=== PATIENT | female | born 1950 ===

== ENCOUNTER 2018-08-20 10:22 | Emergency (ER) | payer OTHER ==
--- OUTSIDE RECORDS SUMMARY | 2018-08-20 10:24 | XMS REPORT | Clinical Summary ---
:1950 Author Organization [facility] Address [address] [place] [address] Care Team Providers Name Role Phone Elliott Amezcua MD Primary Care Provider Allergies No Known Allergies Medications Medication Sig Dispensed Refills Start Date End Date Status losartan (COZAAR) 50 MG Take 50 mg by 0 Active tablet mouth daily. pravastatin (PRAVACHOL) Take 40 mg by 0 Active 40 MG tablet mouth daily. 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 Last Filed Vital Signs Not on file Plan of Treatment Not on file Implants Implanted Type [facility] Medicine Director Device Shelf Model / Identifier Expiration Serial / Date Lot Scr Can Ti 6.7x70mm [id number] - [id number] [place]/A Left: ARTHREX AR- [id number] / Implanted: Qty: 1 on 08/12/2015 by Bruno Flannery MD rthrosco Foot / py Scr Can Ti 6.7x50mm [id number] - [id number] [place]/A Left: ARTHREX AR- [id number] / Implanted: Qty: 1 on 08/12/2015 by Bruno Flannery MD rthrosco Foot / py Scr Lp Paulie Pt 4.5x40 Ti [id number] - [id number] [place]/A Left: ARTHREX [id number] / Implanted: Qty: 1 on 08/12/2015 by Bruno Flannery MD rthroscprincess Foot / py Tiss Live Dbx Putty 5cc [id number] - [id number] Bone Left: MUSCULOSKELETAL 09/2017 [id number] / Implanted: Qty: 1 on 08/12/2015 by Bruno Flannery MD Foot TRANSPLANT FND / Grft Bone Augment 3cc [id number] - [id number] Bone Left: [employer] [id number] / Implanted: Qty: 2 on 08/12/2015 by Bruno Flannery MD Foot GRP: [employer]IN MED / TECH Bone Grft Ignite Pwr 4cc [id number] - [id number] Cement/F Left: WE[employer]IN MED 10/18/2019 [id number] / Implanted: Qty: 2 on 08/12/2015 by Bruno Flannery MD iller/Ad Foot GRP:WEINST[employer]IN MED / hesive TECH [id number] Plt X 3.0mm Med Ti Ar-8952xm - [id number] Fracture Left: ARTHREX AR- [id number] / Implanted: Qty: 2 on 08/12/2015 by Bruno Flannery MD /Fixatio Foot / n Scr Retrofusion 20mm Ar-4157-20 - [id number] Fracture Left: ARTHREX 2019 AR-[id number] / Implanted: Qty: 1 on 08/12/2015 by Bruno Flannery MD /Fixatio Toe / n [id number] Scr Jerry Nicolette 3.0x22mm Ar-8933l-22 - [id number] Fracture Left: ARTHREX AR -[id number]-22 / Implanted: Qty: 1 on 08/12/2015 by Bruno Flannery MD /Fixatio Foot / n Scr Lp Nicolette 3x28mm Ti Ar-8933l-28 - [id number] Fracture Left: ARTHREX AR- [id number]-28 / Implanted: Qty: 2 on 08/12/2015 by Bruno Flannery MD /Fixatio Foot / n Scr Lp Nicolette 3x30mm Ti Ar-8933l-30 - [id number] Fracture Left: ARTHREX AR- [id number]-30 / Implanted: Qty: 1 on 08/12/2015 by Bruno Flannery MD /Fixatio Foot / n Scr Lp Paulie Full Thread 3x28mm Ar-8933-28 - [id number] Fracture Left: ARTHREX AR-8933-28 / Implanted: Qty: 1 on 08/12/2015 by Bruno Flannery MD /Fixatio Foot / n Scr Jerry Lp 3.0x26mm Ar-8933-26 - [id number] Fracture Left: ARTHREX AR- 8933-26 / Implanted: Qty: 1 on 08/12/2015 by Bruno Flannery MD /Fixatio Foot / n Screw 20mm ARTHREX AR-[id number] / Implanted: Qty: 1 on 08/12/2015 by Bruno Flannery MD / Speed Arc Left: BIOMEDICAL 02/11/2019 [id number] / Implanted: Qty: 1 on 08/12/2015 by Bruno Flannery MD Foot ENTERPRISES / [id number] Results Not on fileafter 08/19/2017 Insurance Payer Benefit Plan / Group Subscriber ID Type Phone Address MEDICARE MEDICARE A B xxxxxxxxxx Medicare MCR SUPPLEMENT/INDIVIDUAL MUTUAL OF [employer]USSY xxxxxxxx [facility] Advance Directives For more information, please contact:[address] [phone] Code Status Date Activated Date Inactivated Comments Full Code 08/12/2015 6:50 AM 08/13/2015 4:13 PM This code status was determined by: Patient
--- NOTE | 2018-08-20 11:05 | EDPHYS ---
Physician Documentation [facility] Name: Sho Ortiz Age: 68 yrs Sex: Female : 1950 Arrival Date: 08/20/2018 Time: 10:27 Bed 19 Private MD: Elliott Amezcua T ED Physician Vasiliy Jason HPI: 08/20 11:01 This 68 yrs old Unknown Female presents to ER via Wheelchair with complaints of Finger kayleigh Injury. 11:01 Trauma demographics: County: The injury occurred in [place]. Mechanism of injury: cut. kayleigh Associated injuries: The patient sustained dorsal aspect of middle phalanx of left middle finger. Onset: The symptoms/episode began/occurred just prior to arrival. The patient has not experienced similar symptoms in the past. Historical: - Allergies: 10:42 No Known Allergies; ph - PMHx: 10:42 Hyperlipidemia; Hypertension; CVA (hemorrhagic); ph - PSHx: 10:42 Left foot; ph - Immunization history:: Adult Immunizations unknown. - Social history:: Smoking status: Patient/guardian denies using tobacco. - Ebola Screening: : No symptoms or risks identified at this time. ROS: 11:02 Constitutional: Negative for fever, chills, and weight loss, Eyes: Negative for injury, kayleigh pain, redness, and discharge, ENT: Negative for injury, pain, and discharge, Neck: Negative for injury, pain, and swelling, Cardiovascular: Negative for chest pain, palpitations, and edema, Respiratory: Negative for shortness of breath, cough, wheezing, and pleuritic chest pain, Abdomen/GI: Negative for abdominal pain, nausea, vomiting, diarrhea, and constipation, Back: Negative for injury and pain, : Negative for injury, bleeding, discharge, and swelling, Skin: Negative for injury, rash, and discoloration, Neuro: Negative for headache, weakness, numbness, tingling, and seizure, Psych: Negative for depression, anxiety, suicide ideation, homicidal ideation, and hallucinations, Allergy/Immunology: Negative for hives, rash, and allergies, Endocrine: Negative for neck swelling, polydipsia, polyuria, polyphagia, and marked weight changes, Hematologic/Lymphatic: Negative for swollen nodes, abnormal bleeding, and unusual bruising. 11:02 MS/extremity: Positive for injury or acute deformity, pain, of the dorsal aspect of middle phalanx of left middle finger. Exam: 11:02 Constitutional: This is a well developed, well nourished patient who is awake, alert, kayleigh and in no acute distress. Head/Face: Normocephalic, atraumatic. Eyes: Pupils equal round and reactive to light, extra-ocular motions intact. Lids and lashes normal. Conjunctiva and sclera are non-icteric and not injected. Cornea within normal limits. Periorbital areas with no swelling, redness, or edema. ENT: Nares patent. No nasal discharge, no septal abnormalities noted. Tympanic membranes are normal and external auditory canals are clear. Oropharynx with no redness, swelling, or masses, exudates, or evidence of obstruction, uvula midline. Mucous membranes moist. Neck: Trachea midline, no thyromegaly or masses palpated, and no cervical lymphadenopathy. Supple, full range of motion without nuchal rigidity, or vertebral point tenderness. No Meningismus. Chest/axilla: Normal chest wall appearance and motion. Nontender with no deformity. No lesions are appreciated. Cardiovascular: Regular rate and rhythm with a normal S1 and S2. No gallops, murmurs, or rubs. Normal PMI, no JVD. No pulse deficits. Respiratory: Lungs have equal breath sounds bilaterally, clear to auscultation and percussion. No rales, rhonchi or wheezes noted. No increased work of breathing, no retractions or nasal flaring. Abdomen/GI: Soft, non-tender, with normal bowel sounds. No distension or tympany. No guarding or rebound. No evidence of tenderness throughout. Back: No spinal tenderness. No costovertebral tenderness. Full range of motion. Skin: Warm, dry with normal turgor. Normal color with no rashes, no lesions, and no evidence of cellulitis. Neuro: Awake and alert, GCS 15, oriented to person, place, time, and situation. Cranial nerves II-XII grossly intact. Motor strength 5/5 in all extremities. Sensory grossly intact. Cerebellar exam normal. Normal gait. Psych: Awake, alert, with orientation to person, place and time. Behavior, mood, and affect are within normal limits. 11:02 Musculoskeletal/extremity: ROM: full active range of motion, full passive range of motion, Circulation is intact in all extremities. Sensation intact. Compartment Syndrome exam of affected extremity: is normal. DVT Exam: no swelling, negative Homans' sign noted on exam, no appreciated bluish discoloration, no erythema, no increased warmth, pain, tenderness. Vital Signs: 10:40 BP 146 / 76; Pulse 73; Resp 18; Temp 97.8; Pulse Ox 97% on R/A; Weight 58.97 kg; Height ph 5 ft. 5 in. (165.10 cm); Pain 1/10; 10:40 Body Mass Index 21.63 (58.97 kg, 165.10 cm) ph MDM: 10:33 Patient medically screened. [facility] 11:03 Data reviewed: vital signs, nurses notes. [facility] 08/20 11:01 Order name: Prolene, Sutures; Complete Time: 11:11 [facility] 08/20 11:01 Order name: Dressing - Wound; Complete Time: 11:11 [facility] 08/20 11:01 Order name: Gloves, Sterile; Complete Time: 11:11 [facility] 08/20 11:01 Order name: Setup Suture Tray; Complete Time: 11:12 [facility] 08/20 11:01 Order name: Wound dressing; Complete Time: 11:56 [facility] Administered Medications: 11:20 Drug: Lidocaine (1 %) 5 ml Volume: 5 ml; Route: Infiltration; ph 11:57 Follow up: Response: No adverse reaction ph 11:34 Drug: Tetanus-Diphtheria Toxoid Adult 0.5 ml {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 Exp: ph 06/09/2020. Lot #: [id number]. } Route: IM; Site: right deltoid; 11:57 Follow up: Response: No adverse reaction ph Disposition: 08/20/18 11:04 Discharged to Home. Impression: Laceration without foreign body of finger without damage to nail - left middle. - Condition is Fair. - Discharge Instructions: Laceration Care, Adult, Laceration Care, Adult, [id number]. - Prescriptions for Keflex 500 mg Oral Capsule - take 1 capsule by ORAL route every 8 hours for 7 days; 21 capsule. Tylenol- Codeine #3 300-30 mg Oral Tablet - take 2 tablets by ORAL route every 6 hours As needed; 20 tablet. - Medication Reconciliation Form, Thank You Letter, Antibiotic Education, Prescription Opioid Use form. - Follow up: Elliott Amezcua MD; When: 7 - 10 days; Reason: Recheck today's complaints, Continuance of care, Re-evaluation by your physician. - Problem is new. - Symptoms have improved. Signatures: Vasiliy Jason MD MD cha Hall, Patricia RN RN Jeronimo Lemons RN RN ae4 Corrections: (The following items were deleted from the chart) 12:01 11:04 08/20/2018 11:04 Discharged to Home. Impression: Laceration without foreign body ae4 of finger without damage to nail - left middle. Condition is Fair. Forms are Medication Reconciliation Form, Thank You Letter, Antibiotic Education, Prescription Opioid Use. Follow up: Elliott Amezcua; When: 7 - 10 days; Reason: Recheck today's complaints, Continuance of care, Re-evaluation by your physician. Problem is new. Symptoms have improved. kayleigh
--- NOTE | 2018-08-20 11:05 | ER ---
Nurse's Notes [facility] Name: Sho Ortiz Age: 68 yrs Sex: Female : 1950 Arrival Date: 08/20/2018 Time: 10:27 Bed 19 Private MD: Elliott Amezcua T Diagnosis: Laceration without foreign body of finger without damage to nail-left middle Presentation: 08/20 10:39 Presenting complaint: Patient states: Laceration to L middle finger, states, " I was ph cutting cabbage w/ a new knife." Small laceration noted to pad of L middle finger, bleeding controlled. Transition of care: patient was not received from another setting of care. Onset of symptoms was August 20, 2018. Risk Assessment: Do you want to hurt yourself or someone else? Patient reports no desire to harm self or others. Initial Sepsis Screen: Does the patient meet any 2 criteria? No. Patient's initial sepsis screen is negative. Does the patient have a suspected source of infection? No. Patient's initial sepsis screen is negative. Care prior to arrival: None. 10:39 Method Of Arrival: Wheelchair ph 10:39 Acuity: BENJAMIN 4 ph Historical: - Allergies: 10:42 No Known Allergies; ph - PMHx: 10:42 Hyperlipidemia; Hypertension; CVA (hemorrhagic); ph - PSHx: 10:42 Left foot; ph - Immunization history:: Adult Immunizations unknown. - Social history:: Smoking status: Patient/guardian denies using tobacco. - Ebola Screening: : No symptoms or risks identified at this time. Screenin:43 Abuse screen: Denies threats or abuse. Denies injuries from another. Nutritional ph screening: No deficits noted. Tuberculosis screening: No symptoms or risk factors identified. Fall Risk None identified. Assessment: 10:43 General: Appears in no apparent distress. comfortable, slender, Behavior is calm, ph cooperative, appropriate for age. Pain: Complains of pain in palmar aspect of distal phalanx of left middle finger and palmar aspect of middle phalanx of left middle finger. Neuro: Level of Consciousness is awake, alert, obeys commands, Oriented to person, place, time, situation. Cardiovascular: Capillary refill < 3 seconds in bilateral fingers Patient's skin is warm and dry. Respiratory: Respiratory effort is even, unlabored. Derm: Skin is healthy with good turgor, Skin is pink, warm \\T\\ dry. Musculoskeletal: Circulation, motion, and sensation intact. Range of motion: intact in all extremities, Swelling absent. Injury Description: Laceration sustained to palmar aspect of distal phalanx of left middle finger and palmar aspect of middle phalanx of left middle finger is clean, superficial, 0.5 to 2.5 cm long, not bleeding, was sustained 30-60 minutes ago. Vital Signs: 10:40 BP 146 / 76; Pulse 73; Resp 18; Temp 97.8; Pulse Ox 97% on R/A; Weight 58.97 kg; Height ph 5 ft. 5 in. (165.10 cm); Pain 03/29; 10:40 Body Mass Index 21.63 (58.97 kg, 165.10 cm) ph ED Course: 10:27 Patient arrived in ED. mr 10:27 Elliott Amezcua MD is Private Physician. mr 10:33 Vasiliy Jason MD is Attending Physician. kayleigh 10:38 Jasmyne Daniel RN is Primary Nurse. ph 10:40 Triage completed. ph 10:42 Arm band placed on Patient placed in an exam room, on a stretcher. ph 10:43 Patient has correct armband on for positive identification. Bed in low position. Call ph light in reach. Side rails up X 1. Pulse ox on. NIBP on. Door closed. Noise minimized. 11:03 Elliott Amezcua MD is Referral Physician. kayleigh 11:30 Assist provider with laceration repair on palmar aspect of middle phalanx of left ph middle finger that was 2.5 cm. or less using sutures. Set up tray. Performed by Vasiliy Jason MD Dressed with band aid, Patient tolerated well. 11:37 Patient did not have IV access during this emergency room visit. 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 Exp: ph 06/09/2020. Lot #: [id number]. } Route: IM; Site: right deltoid; 11:57 Follow up: Response: No adverse reaction ph Outcome: 11:04 Discharge ordered by . kayleigh 12:00 Discharged to home ambulatory, With cane. ae4 12:00 Condition: stable 12:00 Discharge instructions given to patient, significant other, Instructed on discharge instructions, follow up and referral plans. medication usage, Demonstrated understanding of instructions, Prescriptions given X 2. 12:01 Patient left the ED. ae4 Signatures: Vasiliy Jason MD MD cha Rivera, Mary mr Hall, Patricia, RN RN Jeronimo Lemons RN RN ae4
[2018-08-20] MEDS ORDERED: TETANUS & DIPHTHERIA TOX,ADULT 0.5 ML VIAL ONE (11:09)
[2018-08-20] MEDS ORDERED: LIDOCAINE 1% MPF 5 ML VIAL ONE (11:09)
== END 2018-08-20 12:01 | disposition home or self-care (01) ==
LOC: ER 10:22
PROC: 0JQK0ZZ Repair Left Hand Subcutaneous Tissue and Fascia, Open Approach (ICD-10-PCS; principal; 2018-08-20)
DX: S61.213A Laceration without foreign body of left middle finger without damage to nail, initial encounter (principal); W45.8XXA Other foreign body or object entering through skin, initial encounter; Y93.9 Activity, unspecified; Y92.89 Other specified places as the place of occurrence of the external cause; Z23 Encounter for immunization; I10 Essential (primary) hypertension
CPT/HCPCS: 90471; 90714; 99284

== ENCOUNTER → 2023-05-15 | Emergency (ER) | payer OTHER ==
[~2023-05-15] MED LIST: MAGNESIUM SULFATE 1 gm IVPB 1 GM/100 ML BAG IV ONE; MORPHINE 2 MG/ML SYR ONE; NA CHLORIDE 0.9% 500 ML ONE; ONDANSETRON 4 MG/2 ML VIAL ONE
[2023-05-15 10:00] LABS: Absolute Lymphocytes (CBC) 1.4 K/uL (0.7-4.9); Hematocrit 39.8 % (36.0-45.0); Lymphocytes % 21.1 % (15.3-44.8); MCV 85.8 fL (80-100); MPV 9.1 fL (7.6-11.3); Platelets 243 thou/uL (152-406); RBC Red Blood Cell Count 4.64 M/uL (3.86-4.86)
[2023-05-15 10:11] LABS: Albumin 3.3 g/dL (3.4-5.0); Bilirubin Total 0.4 mg/dL (0.2-1.0); Potassium 3.8 mEq/L (3.5-5.1); Protein, Total 7.3 g/dL (6.4-8.2)
--- NOTE | 2023-05-15 10:36 | ER ---
Nurse's Notes [facility] Name: Sho Ortiz Age: 72 yrs Sex: Female : 1950 Arrival Date: 05/15/2023 Time: 09:06 Bed 16 Private MD: Diagnosis: Unspecified symptoms and signs involving the musculoskeletal system;Pain in left leg;Synovial cyst of popliteal space [[place]], left knee-2-3 cm;Unspecified kidney failure Presentation: 05/15 09:13 Chief complaint: Spouse and/or significant other states: Upper left leg pain for the ri1 last 3 days, not able to get out of bed. Coronavirus screen: Vaccine status: Patient reports being unvaccinated. Ebola Screen: Patient denies travel to an Ebola-affected area in the 21 days before illness onset. Initial Sepsis Screen: Does the patient meet any 2 criteria? HR > 90 bpm. No. Patient's initial sepsis screen is negative. Does the patient have a suspected source of infection? No. Patient's initial sepsis screen is negative. Risk Assessment: Do you want to hurt yourself or someone else? Patient reports no desire to harm self or others. Onset of symptoms was April 2023. 09:13 Method Of Arrival: Other [facility] 09:13 Acuity: BENJAMIN 3 [facility] Historical: - Allergies: 09:19 No Known Allergies; nj1 - PMHx: 09:19 CVA (hemorrhagic); Hyperlipidemia; Hypertension; nj1 - Immunization history:: Client reports having NOT received the Covid vaccine. - Social history:: Smoking status: Patient denies any tobacco usage or history of. - Family history:: not pertinent. Screenin:10 [facility] ED Fall Risk Assessment (Adult) History of falling in the last 3 months, ko1 including since admission No falls in past 3 months (0 pts) Confusion or Disorientation No (0 pts) Intoxicated or Sedated No (0 pts) Impaired Gait No (0 pts) Mobility Assist Device Used No (0 pt) Altered Elimination No (0 pt) Score/Fall Risk Level 0 - 2 = Low Risk Oriented to surroundings, Maintained a safe environment, Educated pt \T\ family on fall prevention, incl call for assistance when getting out of bed, Assessed \T\ reinforced patient's understanding of fall precautions, Provided non-skid footwear, Hourly rounding (assess needs \T\ fall precautionary measures) done, Used ambulatory aids as needed (educated on \T\ assisted with), Used gait belt as appropriate. Abuse screen: Denies threats or abuse. Denies injuries from another. Nutritional screening: No deficits noted. Tuberculosis screening: No symptoms or risk factors identified. Assessment: 10:10 General: Appears in no apparent distress. Behavior is calm, cooperative, appropriate ko1 for age. Pain: Complains of pain in left quadriceps and left hamstring. Musculoskeletal: Reports pain in left quadriceps and left hamstring. 10:26 Reassessment: patient refuses pain/nausea meds at this time. ko1 10:42 Reassessment: xray being done at this time. ko1 Vital Signs: 09:13 BP 133 / 97; Pulse 107; Resp 17; Temp 97.8(O); Pulse Ox 98% ; Weight 58.06 kg (R); nj1 Height 5 ft. 6 in. ; 10:10 BP 137 / 74; Pulse 75; Resp 16; Pulse Ox 99% ; ko1 10:37 BP 136 / 72; Pulse 73; Resp 14; Pulse Ox 98% ; ko1 09:13 Body Mass Index 20.66 (58.06 kg, 167.64 cm) nj1 ED Course: 09:11 Patient arrived in ED. mg5 09:11 Vasiliy Jason MD is Attending Physician. [facility] 09:19 Triage completed. nj1 09:20 Arm band placed on right wrist. nj1 09:25 Inserted saline lock: 22 gauge in left forearm, using aseptic technique. Blood nj1 collected. 09:26 Lashell Fajardo, KAMILA is Primary Nurse. ko1 10:09 US Extremity Venous W Compression Jarrett In Process Unspecified. EDMS 10:10 Patient has correct armband on for positive identification. Placed in gown. Bed in low ko1 position. Call light in reach. Side rails up X2. Pulse ox on. NIBP on. Door closed. Noise minimized. Lights dimmed. Warm blanket given. 10:34 Ace Correa MD is Referral Physician. kayleigh 10:37 Robert Arauz MD is Referral Physician. [facility] 10:37 Provided Education on: na. ko1 10:37 No provider procedures requiring assistance completed. ko1 10:42 X-ray(s) taken. ko1 11:00 Femur Left XRAY In Process Unspecified. EDMS 11:29 IV discontinued, intact, bleeding controlled, No redness/swelling at site. Pressure ko1 dressing applied. Administered Medications: 10:02 Drug: NS 0.9% IV 500 ml IV at bolus once Route: IV; Rate: bolus; Site: left antecubital;ko1 10:40 Follow up: Response: No adverse reaction; IV Status: Completed infusion; IV Intake: ko1 500ml 10:19 Drug: Magnesium Sulfate IVPB 1 grams IVPB once over 20 hrs Route: IVPB; Infused Over: ko1 20 hrs; Site: left antecubital; 10:41 Follow up: Response: No adverse reaction; IV Status: Completed infusion; IV Intake: ko1 100ml 10:36 Not Given (Patient Refused): morphineor iv 2 mg IVP once over 4 mins ko1 10:36 Not Given (Patient Refused): morphineor iv 2 mg IVP once over 4 mins ko1 10:36 Not Given (Patient Refused): ondansetron 4 mg IVP once; over 2 minutes ko1 Medication: 10:37 VIS not applicable for this client. ko1 Intake: 10:40 IV: 500ml; Total: 500ml. ko1 10:41 IV: 100ml; Total: 600ml. ko1 Outcome: 10:35 Discharge ordered by . kayleigh 11:29 Discharged to home via wheelchair, with family, ko1 11:29 Condition: stable 11:29 Discharge instructions given to patient, family, Instructed on discharge instructions, follow up and referral plans. medication usage, Demonstrated understanding of instructions, follow-up care, medications, Prescriptions given X 2, 11:37 Patient left the ED. ko1 Signatures: Dispatcher [employer] EDNC Vasiliy Jason MD MD cha Oliver, Kathy, RN RN ko1 Emmy Olmos RN RN Maxine Cortes mg5
--- NOTE | 2023-05-15 10:36 | EDPHYS ---
Physician Documentation [facility] Name: Sho Ortiz Age: 72 yrs Sex: Female : 1950 Arrival Date: 05/15/2023 Time: 09:06 Bed 16 Private MD: ED Physician Vasiliy Jason HPI: 05/15 10:07 This 72 yrs old Unknown Female presents to ER via Other with complaints of Leg Pain. kayleigh 10:07 The patient presents with decreased range of motion, pain, that is acute. The kayleigh complaints affect the lateral aspect of left thigh, left hamstring, medial aspect of left thigh and left quadriceps. Context: The problem was sustained at home, resulted from an unknown cause. Onset: The symptoms/episode began/occurred 1 week(s) ago. Modifying factors: The symptoms are alleviated by nothing. the symptoms are aggravated by nothing. Associated signs and symptoms: The patient has no apparent associated signs or symptoms. Treatment prior to arrival includes: no previous treatment. Severity of symptoms: At their worst the symptoms were mild, moderate, in the emergency department the symptoms are unchanged. The patient has not experienced similar symptoms in the past. Historical: - Allergies: 09:19 No Known Allergies; nj1 - PMHx: 09:19 CVA (hemorrhagic); Hyperlipidemia; Hypertension; nj1 - Immunization history:: Client reports having NOT received the Covid vaccine. - Social history:: Smoking status: Patient denies any tobacco usage or history of. - Family history:: not pertinent. ROS: 10:07 Constitutional: Negative for fever, chills, and weight loss, Eyes: Negative for injury, kayleigh pain, redness, and discharge, ENT: Negative for injury, pain, and discharge, Neck: Negative for injury, pain, and swelling, Cardiovascular: Negative for chest pain, palpitations, and edema, Respiratory: Negative for shortness of breath, cough, wheezing, and pleuritic chest pain, Abdomen/GI: Negative for abdominal pain, nausea, vomiting, diarrhea, and constipation, Back: Negative for injury and pain, : Negative for injury, bleeding, discharge, and swelling, Skin: Negative for injury, rash, and discoloration, Neuro: Negative for headache, weakness, numbness, tingling, and seizure, Psych: Negative for depression, anxiety, suicide ideation, homicidal ideation, and hallucinations, Allergy/Immunology: Negative for hives, rash, and allergies, Endocrine: Negative for neck swelling, polydipsia, polyuria, polyphagia, and marked weight changes, Hematologic/Lymphatic: Negative for swollen nodes, abnormal bleeding, and unusual bruising, 10:07 MS/extremity: Positive for decreased range of motion, tenderness, of the lateral aspect of left thigh, left hamstring, medial aspect of left thigh and left quadriceps, Exam: 10:07 Constitutional: This is a well developed, well nourished patient who is awake, alert, kayleigh and in no acute distress. Head/Face: Normocephalic, atraumatic. Eyes: Pupils equal round and reactive to light, extra-ocular motions intact. Lids and lashes normal. Conjunctiva and sclera are non-icteric and not injected. Cornea within normal limits. Periorbital areas with no swelling, redness, or edema. ENT: Nares patent. No nasal discharge, no septal abnormalities noted. Tympanic membranes are normal and external auditory canals are clear. Oropharynx with no redness, swelling, or masses, exudates, or evidence of obstruction, uvula midline. Mucous membranes moist. Neck: Trachea midline, no thyromegaly or masses palpated, and no cervical lymphadenopathy. Supple, full range of motion without nuchal rigidity, or vertebral point tenderness. No Meningismus. Chest/axilla: Normal chest wall appearance and motion. Nontender with no deformity. No lesions are appreciated. Cardiovascular: Regular rate and rhythm with a normal S1 and S2. No gallops, murmurs, or rubs. Normal PMI, no JVD. No pulse deficits. Respiratory: Lungs have equal breath sounds bilaterally, clear to auscultation and percussion. No rales, rhonchi or wheezes noted. No increased work of breathing, no retractions or nasal flaring. Abdomen/GI: Soft, non-tender, with normal bowel sounds. No distension or tympany. No guarding or rebound. No evidence of tenderness throughout. Back: No spinal tenderness. No costovertebral tenderness. Full range of motion. Skin: Warm, dry with normal turgor. Normal color with no rashes, no lesions, and no evidence of cellulitis. Neuro: Awake and alert, GCS 15, oriented to person, place, time, and situation. Cranial nerves II-XII grossly intact. Motor strength 5/5 in all extremities. Sensory grossly intact. Cerebellar exam normal. Normal gait. Psych: Awake, alert, with orientation to person, place and time. Behavior, mood, and affect are within normal limits. 10:07 Musculoskeletal/extremity: Extremities: grossly normal except: noted in the left hamstring and left quadriceps: decreased ROM, pain, DVT Exam: no swelling, negative Homans' sign noted on exam, no appreciated bluish discoloration, no erythema, no increased warmth, pain, tenderness, Vital Signs: 09:13 BP 133 / 97; Pulse 107; Resp 17; Temp 97.8(O); Pulse Ox 98% ; Weight 58.06 kg (R); nj1 Height 5 ft. 6 in. ; 10:10 BP 137 / 74; Pulse 75; Resp 16; Pulse Ox 99% ; ko1 10:37 BP 136 / 72; Pulse 73; Resp 14; Pulse Ox 98% ; ko1 09:13 Body Mass Index 20.66 (58.06 kg, 167.64 cm) [facility] MDM: 09:[address] [facility] 10:14 Differential diagnosis: contusion, tendonitis. Data reviewed: vital signs, nurses [facility] notes, lab test result(s), radiologic studies, doppler. Consideration of Admission/Observation Escalation of care including admission/observation considered. I considered the following discharge prescriptions or medication management in the emergency department Medications were administered in the Emergency Department. See MAR. Independent interpretation of the following test(s) in the Emergency Department X-Ray: My interpretation is left femur neg. Test considered but Not performed:. Historians other than the Patient: Spouse/Significant Other: boyfriend well informed. Care significantly affected by the following chronic conditions: Hypertension, cva, left leg affected, hyperlipidemia. 05/15 09:25 Order name: CBC with Diff; Complete Time: 10: [facility] 05/15 09:25 Order name: Comprehensive Metabolic Panel; Complete Time: : [facility] 05/15 08:25 Order name: Femur Left XRAY [facility] 05/15 08: Order name: US Extremity Venous W Compression Jarrett; Complete Time: 11:02 [facility] Administered Medications: 10:02 Drug: NS 0.9% IV 500 ml IV at bolus once Route: IV; Rate: bolus; Site: left antecubital;ko1 10:40 Follow up: Response: No adverse reaction; IV Status: Completed infusion; IV Intake: ko1 500ml 10:19 Drug: Magnesium Sulfate IVPB 1 grams IVPB once over 20 hrs Route: IVPB; Infused Over: ko1 20 hrs; Site: left antecubital; 10:41 Follow up: Response: No adverse reaction; IV Status: Completed infusion; IV Intake: ko1 100ml 10:36 Not Given (Patient Refused): morphineor iv 2 mg IVP once over 4 mins ko1 10:36 Not Given (Patient Refused): morphineor iv 2 mg IVP once over 4 mins ko1 10:36 Not Given (Patient Refused): ondansetron 4 mg IVP once; over 2 minutes ko1 Disposition Summary: 05/15/23 10:35 Discharge Ordered Notes: Location: Home kayleigh Problem: new kayleigh Symptoms: have improved kayleigh Condition: Stable kayleigh Diagnosis - Unspecified symptoms and signs involving the musculoskeletal system kayleigh - Pain in left leg kayleigh - Synovial cyst of popliteal space [Bullock], left knee - 2-3 cm kayleigh - Unspecified kidney failure kayleigh Followup: kayleigh - With: Private Physician - When: 2 - 3 days - Reason: Recheck today's complaints, Continuance of care, Re-evaluation by your physician Followup: kayleigh - With: Ace Correa MD - When: 2 - 3 days - Reason: Recheck today's complaints, Re-evaluation by your physician Followup: kayleigh - With: Robert Arauz MD - When: 5 - 6 days - Reason: Recheck today's complaints, Re-evaluation by your physician Discharge Instructions: - Discharge Summary Sheet kayleigh - Bullock Cyst kayleigh - Musculoskeletal Pain kaylegih - Chronic Kidney Disease, Adult, [id number] [facility] - Chronic Kidney Disease, Adult [facility] Forms: - Medication Reconciliation Form [facility] - Thank You Letter [facility] - Antibiotic Education [facility] - Prescription Opioid Use [facility] - Patient Portal Instructions [facility] - Leadership Thank You Letter [facility] Prescriptions: - diclofenac sodium 25 mg Oral tablet, delayed release (enteric coated) - take 1 tablet ORAL route every 12 hours as needed for pain; 20 tablet; Refills: kayleigh 0, Product Selection Permitted - Skelaxin 800 mg Oral Tablet - take 1 tablet ORAL route every 8 hours As needed; 30 tablet; Refills: 0, kayleigh Product Selection Permitted Signatures: Dispatcher [employer] Vasiliy Mccoy MD MD cha Oliver, Kathy, RN RN lisa1 Emmy Olmos, RN RN nj1
--- NOTE | 2023-05-15 10:41 | RAD REPORT ---
EXAM DESCRIPTION: US - Extrem Venous W Compress Jarrett - 05/15/2023 10:07 am CLINICAL HISTORY: PAIN COMPARISON: No comparisons TECHNIQUE: Real-time sonographic evaluation of the lower extremity deep venous systems was performed using color Doppler, grayscale, and compression. FINDINGS: Bilateral lower extremities. Normal compressibility, flow augmentation, phasic flow and spontaneous flow is identified in both the left and right lower extremity deep venous systems. No intraluminal filling defects seen. Bullock's cyst at the left popliteal fossa measuring 4.6 x 0.9 x 1.1 cm. IMPRESSION: No DVT in either lower extremity. Left popliteal fossa Bullock's cyst.
--- NOTE | 2023-05-15 11:04 | RAD REPORT ---
EXAM DESCRIPTION: RAD - Femur Left - 05/15/2023 10:58 am CLINICAL HISTORY: PAIN COMPARISON: No comparisons FINDINGS/IMPRESSION: No acute fracture. No malalignment. No significant focal degenerative changes. Peripheral vascular calcifications .
[2023-05-15 12:15] VITALS: BP 136/72; TEMP 97.8; O2SAT 98
== END ==
LOC: ER 09:06
DX: M71.22 Synovial cyst of popliteal space [Baker], left knee (principal); R29.91 Unspecified symptoms and signs involving the musculoskeletal system; N19 Unspecified kidney failure; I10 Essential (primary) hypertension; Z86.73 Personal history of transient ischemic attack (TIA), and cerebral infarction without residual deficits
CPT/HCPCS: 85025; 36415; 80053; 73552; 93970; J3475; J7040; 96365; 99284; J2270; J2405